=== PATIENT | male | born 1955 | race Caucasian/White ===

== ENCOUNTER → 2017-01-09 | Outpatient (CLI) | payer OTHER | LOC: BRMIMAGING 16:59 | PROVIDERS: ATTEND Internal Medicine | DX: M51.36 Other intervertebral disc degeneration, lumbar region (principal); M51.37 Other intervertebral disc degeneration, lumbosacral region; M16.12 Unilateral primary osteoarthritis, left hip | CPT/HCPCS: 72100-PO; 73521-PO ==